=== PATIENT | female | born 1955 | race Two or more races ===

== ENCOUNTER 2017-02-15 07:56 | Day surgery (SDC) | payer MEDICARE, OTHER ==
[2017-02-13 16:14] VITALS: BMI 22.3
[~2017-02-15 07:56] MED LIST: LACTATED RINGERS 1,000 ML IV SCH; LIDOCAINE 1% 20 ML VIAL (10MG/ML) FOR IV START INTRADERMA PRN
[2017-02-15 08:56] VITALS: TEMP 98
[2017-02-15] MEDS ORDERED: MIDAZOLAM 2 MG/2 ML VIAL ONE (09:31)
[2017-02-15] MEDS ORDERED: PROPOFOL 10 MG/ML 20 ML VIAL IV ONE (09:31)
[2017-02-15] MEDS ORDERED: LIDOCAINE 1% INJ 10MG/ML (20 ML MDV) ONE (09:31)
--- NOTE | 2017-02-15 10:16 | P.PCN ---
Date of Procedure: 02/15/17 Preoperative Diagnosis: Postoperative Diagnosis: Procedure(s) Performed: Procedure: Total colonoscopy and polypectomy. Preoperative diagnosis: Rectal bleeding. Postoperative diagnosis: 1. Sigmoid diverticulosis with no evidence of acute diverticulitis or strictures. 2. Low-grade internal hemorrhoids not bleeding at the time of this exam. 3. Distal sigmoid polyp snared but no large polyps or cancer. Preparation: HalfLytely prep. Sedation: Was provided by anesthesia. Brief clinical history: The patient is a 61-year-old female who is referred for this evaluation because of rectal bleeding for the last several months. No definite change in bowel habits. She does have 4 bowel movements every morning. There is family history of colon cancer in her maternal grand mother. She does have history of breast cancer and had bilateral mastectomy. This would be her first colonoscopy. Procedure: With the patient on her left lateral decubitus position and after informed consent and adequate sedation, the perianal area was inspected and it did not show any fissures or fistulas. There were no masses felt on digital rectal examination. The Olympus CFQ 160L video colonoscope was then inserted in the rectum in the usual fashion and advanced to the cecum. There were multiple diverticular orifices seen scattered in the sigmoid with no evidence of acute diverticulitis or strictures. A pedunculated polyp was seen in the distal sigmoid which was snared and retrieved by suctioning it to the tip of the endoscope and withdrawing the endoscope, but there were no large polyps or cancer. I retroflexed the endoscope in the rectum before the endoscope was withdrawn. Low-grade internal hemorrhoids were noted but there was no evidence of bleeding. The patient tolerated the procedure well. Plan: The patient was reassured. Discussed dietary measures and local care for hemorrhoids. She will follow-up with you as planned and I recommended repeat exam in 5 years. Implants: Indications for Procedure: Operative Findings: Description of Procedure:
[2017-02-15 10:21] VITALS: RESP 18
[2017-02-15 10:29] VITALS: BP 110/74; PULSE 67
== END 2017-02-15 11:00 | disposition home or self-care (01) ==
LOC: ORWHC2ENDO 07:56
DX: D12.5 Benign neoplasm of sigmoid colon (principal); K57.30 Diverticulosis of large intestine without perforation or abscess without bleeding; K64.8 Other hemorrhoids; Z80.0 Family history of malignant neoplasm of digestive organs
CPT/HCPCS: 88305; 45385; J2250; J2001; J2704

== ENCOUNTER → 2017-07-30 | Outpatient (CLI) | payer MEDICARE, OTHER ==
--- NOTE | 2017-07-30 13:06 | XR ---
EXAMINATION TYPE: XR lumbosacral spine min 4V DATE OF EXAM: 07/30/2017 COMPARISON: NONE HISTORY: 61-year-old female low back pain and left leg pain TECHNIQUE: 5 views FINDINGS: Normal alignment of the lumbar spine. Facet arthropathy especially mid to lower lumbar spine. No pars interarticularis defects seen. Alignment is maintained. Vertebral body heights are preserved. Mild m ultilevel endplate spondylosis. IMPRESSION: Facet arthropathy especially mid to lower lumbar spine. No vertebral compression collapse or malalign ment. Mild multilevel degenerative disc disease.
== END | disposition home or self-care (01) ==
LOC: RADXRYALE 10:17
PROVIDERS: ATTEND Physician Assistant Medical
DX: M51.36 Other intervertebral disc degeneration, lumbar region (principal); M46.86 Other specified inflammatory spondylopathies, lumbar region
CPT/HCPCS: 72110

== ENCOUNTER → 2018-08-20 | Outpatient (CLI) | payer MEDICARE ==
--- NOTE | 2018-08-20 15:18 | XR ---
Left hip HISTORY: Pain 2 views of the left hip Bone mineralization, joint spaces and alignment are maintained. No fracture or dislocation. IMPRESSION: Unremarkable left hip.
== END | disposition home or self-care (01) ==
LOC: RADXRYALE 11:33
PROVIDERS: ATTEND Physician Assistant Medical
DX: M25.552 Pain in left hip (principal)
CPT/HCPCS: 73502

== ENCOUNTER → 2018-09-04 | Outpatient (CLI) | payer MEDICARE, OTHER ==
--- NOTE | 2018-09-04 23:34 | MR ---
EXAMINATION TYPE: MR hip LT wo con DATE OF EXAM: 09/04/2018 COMPARISON: None HISTORY: Left Hip Pain x1 month after Heavy Lifting Standard multiplanar, multisequence MRI departmental protocol Multiplanar, multisequence images of the left hip were acquired. FINDINGS: The pelvic ring is intact. Proximal femurs and hip joints are intact. There is no sign of h ip dysplasia. There is fairly normal signal pattern in the proximal femurs. There is no sign of avasc ular necrosis. There is no free fluid in the pelvis. I see no focal bone destruction. There is no claudia dence of hip joint effusion. There is no evidence of a soft tissue mass. Muscle structures are fairly symmetric. IMPRESSION: Negative MR scan of the pelvis and left hip.
== END ==
LOC: RADMRIMAIN 17:55
PROVIDERS: ATTEND Physician Assistant Medical
DX: M25.552 Pain in left hip (principal)

== ENCOUNTER → 2021-03-02 | Outpatient (CLI) | payer MEDICARE ==
--- NOTE | 2021-03-03 07:14 | US ---
EXAMINATION TYPE: US pelvis complete transvag DATE OF EXAM: 03/02/2021 COMPARISON: NONE CLINICAL HISTORY: D25.9 Leiomyoma of uterus,unspecified. Patient states having a partial hysterectomy in 2003 but cannot accurately account what is missing. Patient states doctor felt fibroid during ex am. TECHNIQUE: Transvaginal (TV) and Transabdominal (TA) . Transabdominal sonographic images of the pel vis were acquired. Transvaginal sonographic images were medically necessary to better assess the fol lowing anatomy: Ovaries Date of LMP: [employer], EXAM MEASUREMENTS: Uterus: 5.6 x 3.4 x 2.3 cm Endometrial Stripe: 0.2 cm 1. Uterus: Anteverted Appears small in size and heterogenous 2. Endometrium: wnl 3. Right Ovary: Obscured by overlying bowel gas vs absent 4. Left Ovary: Obscured by overlying bowel gas vs absent 5. Bilateral Adnexa: wnl 6. Posterior cul-de-sac: no free fluid IMPRESSION: Neither ovary could be visualized, likely due to overlying bowel.
== END | disposition home or self-care (01) ==
LOC: RADUSWWP 15:28
PROVIDERS: ATTEND Family Medicine
DX: D25.9 Leiomyoma of uterus, unspecified (principal); Z90.710 Acquired absence of both cervix and uterus
CPT/HCPCS: 76830; 76856